=== PATIENT | male | born 1965 | race Caucasian/White ===

== ENCOUNTER 2017-12-20 05:59 | Day surgery (SDC) | payer BC ==
[2017-12-20] MEDS ORDERED: FENTAnyl 50 MCG/ML VIAL (08:01)
[2017-12-20] MEDS ORDERED: MIDAZOLAM 1 MG/ML 2 ML INJ ×2 (08:01)
== END 2017-12-20 11:27 | disposition home or self-care (01) ==
LOC: GIL 05:59
DX: Z12.11 Encounter for screening for malignant neoplasm of colon (principal); K57.90 Diverticulosis of intestine, part unspecified, without perforation or abscess without bleeding; K64.8 Other hemorrhoids
CPT/HCPCS: 45378